=== PATIENT | female | born 1975 | race Two or more races ===

== ENCOUNTER 2021-03-19 12:17 | Emergency (ER) | payer OTHER ==
[~2021-03-19] VITALS: Ht 160 cm; Wt 72.6 kg
[2021-03-19] MEDS ORDERED: CIPRO500 MG PO (18:24)
[2021-03-19] MEDS ORDERED: PYRIDIUM100 MG PO (18:24)
== END 2021-03-19 18:27 | disposition home or self-care (01) ==
LOC: ER 12:17
DX: N39.0 Urinary tract infection, site not specified (principal); M54.5 Low back pain; R30.0 Dysuria